=== PATIENT | male | born 1950 | race Caucasian/White ===

== ENCOUNTER 2018-01-23 14:04 | Outpatient (CLI) | payer OTHER ==
[~2018-01-23 14:04] MED LIST: FENO145T PO; FLUT1DIS3 IH; LOVA40TA75 PO
== END 2018-01-23 22:00 | disposition home or self-care (01) ==
LOC: SRD 14:04
PROVIDERS: ATTEND Specialist
DX: I51.7 Cardiomegaly (principal); I70.0 Atherosclerosis of aorta; J45.909 Unspecified asthma, uncomplicated
CPT/HCPCS: 71046-TC

== ENCOUNTER 2020-01-07 06:20 | Day surgery (SDC) | payer OTHER, SELFPAY ==
[~2020-01-07] VITALS: Ht 175.3 cm; Wt 113.4 kg
[2020-01-07] MEDS ORDERED: SIMETHICONE 40 MG/0.6 ML ML ONE (07:57)
[2020-01-07] MEDS: MIDAZOLAM HCL 5 MG/5 ML VIAL ONE ×4 (11:58→12:10)
[2020-01-07] MEDS: fentaNYL CITRATE/PF 100 MCG/2 ML AMP ONE ×3 (11:58→12:04)
[2020-01-07] MEDS ORDERED: DIPHENHYDRAMINE INJ 50 MG/ML VIAL ONE (12:43)
[2020-01-07 12:44] VITALS: BP_SYST 161
== END 2020-01-07 16:00 | disposition home or self-care (01) ==
LOC: SMU 06:20 → SDS 06:20
PROVIDERS: ATTEND Internal Medicine
DX: R19.5 Other fecal abnormalities (principal); D12.4 Benign neoplasm of descending colon; K64.8 Other hemorrhoids; K57.30 Diverticulosis of large intestine without perforation or abscess without bleeding; J45.909 Unspecified asthma, uncomplicated; Z79.899 Other long term (current) drug therapy; Z20.828 Contact with and (suspected) exposure to other viral communicable diseases
CPT/HCPCS: 45385; 88305; 99152; G0378; J1200; J2250; J3010; U0003

== ENCOUNTER 2021-03-16 13:47 | Emergency (ER) | payer OTHER, SELFPAY ==
[~2021-03-16] VITALS: Ht 175.3 cm; Wt 113.4 kg
[2021-03-16 15:10] VITALS: BP_SYST 176
[2021-03-16 20:32] LABS: BASOPHILS # (AUTO) 0.1 K/uL (0.0-0.2); EOSINOPHILS # (AUTO) 0.3 K/uL (0.0-0.4); HEMATOCRIT 42.4 % (36-54); HEMOGLOBIN 14.4 g/dL (14.0-18.0); LYMPHOCYTES # (AUTO) 1.9 K/uL (1.0-5.5); LYMPHOCYTES % (AUTO) 22.2 % (20.5-51.5); MEAN CORPUSCULAR HEMOGLOBIN 30 pg (27-31); MEAN CORPUSCULAR HGB CONC 34 % (32-36); MEAN CORPUSCULAR VOLUME 88 fL (79.0-98.0); MONOCYTES # (AUTO) 0.8 K/uL (0.0-1.0); MONOCYTES % (AUTO) 9.2 % (1.7-9.3); NEUTROPHILS # (AUTO) 5.7 K/uL (1.8-7.7); NEUTROPHILS % (AUTO) 64.6 % (40.0-70.0); PLATELET COUNT (AUTO) 205 K/uL (130-430); RED BLOOD CELL COUNT(AUTO) 4.82 MIL/uL (4.2-6.2); WHITE BLOOD COUNT (AUTO) 8.8 K/uL (4.8-10.8)
[2021-03-16 20:48] LABS: CALCIUM 9.2 mg/dL (8.4-11.0); CREATININE 1.17 mg/dL (0.55-1.30); POTASSIUM 3.7 mmol/L (3.5-5.1)
[2021-03-16 21:03] LABS: ALBUMIN 3.6 g/dL (3.4-4.8); THYROID STIMULATING HORMONE 1.92 uIu/mL (0.36-3.74); TOTAL BILIRUBIN 0.4 mg/dL (0.0-1.0)
[2021-03-16] MEDS ORDERED: traZODone HCL 50 MG TABLET (DESYREL) PO ONE (21:15)
[2021-03-16] MEDS ORDERED: TRAZ-250 PO (21:21)
[2021-03-16] MEDS ORDERED: hydrALAZINE HCL 20 MG/ML VIAL ONE (21:22)
[2021-03-16] MEDS ORDERED: hydrALAZINE HCL 20 MG/ML VIAL IVP ONE (21:30)
[2021-03-16] MEDS ORDERED: traZODone HCL 50 MG TABLET (DESYREL) ONE (22:07)
[2021-03-16 22:22] VITALS: BP_SYST 150
== END 2021-03-16 22:22 | disposition home or self-care (01) ==
LOC: SED 13:47
DX: F41.9 Anxiety disorder, unspecified (principal); I10 Essential (primary) hypertension; J45.909 Unspecified asthma, uncomplicated; Z79.899 Other long term (current) drug therapy
CPT/HCPCS: 36415; 80053; 84443; 85025; 96374; 99283; J0360